=== PATIENT | female | born 1935 | race Caucasian/White ===

== ENCOUNTER 2023-02-03 00:30 | Emergency (ER) | payer MEDICARE ==
[~2023-02-03] VITALS: Ht 154.9 cm; Wt 68.6 kg
[~2023-02-03 00:30] MED LIST: ALEN70TA60 PO; AMLO2.5T2 PO; ASPI-611 PO; BENA40TA90 PO; GLIP5TAB13 PO; LYR25C PO; MECL12.5 PO; METF500T PO; METO100T7 PO; SIMV-42 PO; ZOLP5TAB8 PO
[2023-02-03 00:42] VITALS: TEMP 98
[2023-02-03] MEDS ORDERED: traMADol 50MG tablet PO ONE (02:30)
[2023-02-03] MEDS ORDERED: acetaminophen 325mg tablet PO ONE (02:30)
[2023-02-03] MEDS ORDERED: ketorolac trometh inj. 60 MG/2 ML VIAL IM ONE (02:30)
[2023-02-03] MEDS ORDERED: orphenadrine citrate 60mg/2ml inj. IM ONE (02:30)
[2023-02-03] MEDS ORDERED: TRAM50TA2 PO (02:34)
[2023-02-03] MEDS ORDERED: LIDO700A32 TOP (02:34)
[2023-02-03] MEDS ORDERED: LIDOcaine 5% patch TP ONE (02:35)
[2023-02-03 03:43] VITALS: BP 156/70; PULSE 65; RESP 17; O2SAT 98
== END 2023-02-03 03:44 | disposition home or self-care (01) ==
LOC: ER 00:31
DX: G89.29 Other chronic pain (principal); M54.59 Other low back pain; Z79.899 Other long term (current) drug therapy
CPT/HCPCS: 96372; 99284; J1885; J2360

== ENCOUNTER 2023-05-20 01:41 | Emergency (ER) | payer MEDICARE ==
[~2023-05-20 01:41] MED LIST changes: -GLIP5TAB13 PO; +GLIP5TAB23 PO; +LIDO700A32 TOP
[2023-05-20 01:51] VITALS: BP 165/77; TEMP 98.7
[2023-05-20 02:48] VITALS: PULSE 72; RESP 16; O2SAT 98
== END 2023-05-20 02:49 | disposition home or self-care (01) ==
LOC: ER 01:42
DX: U07.1 COVID-19 (principal); F41.9 Anxiety disorder, unspecified; Z79.899 Other long term (current) drug therapy; Z79.82 Long term (current) use of aspirin
CPT/HCPCS: 71045; 93005; 99283